=== PATIENT | female | born 1955 | race Caucasian/White ===

== ENCOUNTER 2017-03-27 13:54 | Inpatient (IN) | payer OTHER ==
[~2017-03-27] VITALS: Ht 165.1 cm; Wt 61.7 kg
[~2017-03-27 13:54] MED LIST: ALBUTEROL0.09 MG/A1 INH; MEDROL DOSEPAK1 PAC PO; NASONEX0.05 MG/Ac NAS; ROBITUSSIN W/CO10 ML PO; TESSALON PERLE100 MG PO; ZITHROMAX Z-PA250 M1 PO
--- NOTE | 2017-03-27 14:26 | ED DYSPNEA/ASTHMA COMPLAINT ---
History of Present Illness General Chief Complaint: Dyspnea (COPD, CHF, Other) Stated Complaint: PT IS SOB 94 Source: patient Exam Limitations: no limitations Vital Signs & Intake/Output Vital Signs & Intake/Output Vital Signs Date Time Temp Pulse Resp B/P B/P Pulse O2 O2 Flow FiO2 Mean Ox Delivery Rate 03/27 1929 Room Air 03/27 1929 97.9 113 23 170/105 95 Room Air 03/27 1723 122 190/102 03/27 1706 122 190/102 03/27 1652 96.4 122 18 190/102 97 Room Air 03/27 1420 97.4 119 16 155/96 95 Room Air Allergies Coded Allergies: NO KNOWN ALLERGIES (11/26/14) Reconcile Medications Aspirin (Aspirin*) 325 MG TABLET 1 TAB PO DAILY HEART Atorvastatin Calcium 40 MG TABLET 1 TAB PO DAILY CHOLESTEROL (Reported) Carvedilol 25 MG TABLET 1 TAB PO BID HYPERTENSION (Reported) Clopidogrel Bisulfate (Plavix) 75 MG TABLET 1 TAB PO DAILY HEART Diltiazem HCl (Diltiazem 24HR ER) 120 MG CAP.ER.24H 1 CAP PO DAILY HEART RATE (Reported) Fenofibrate Nanocrystallized (Fenofibrate) 145 MG TABLET 1 TAB PO DAILY CHOLESTEROL (Reported) Heparin Sod,Porcine/0.9 % NaCl (Heparin 2,500 Unit/250 Ml-Ns) 2,500 UNIT/250 ML (10 UNIT/ML) IV.SOLN 0 IV SEE ADMIN CRITERIA ACS PTT(sec) Repeat bolus STOP(min) Change Next PTT (Hr) <45 60units/kg 0 incre 4u/kg/h 6 45-60 30units/kg 0 incre 2u/kg/h 6 61-90 0 0 no change 12 91-100 0 0 decre 2u/kg/h 6 >100 0 60mins decre 4u/kg/h 6 Levothyroxine Sodium 25 MCG TABLET 1 TAB PO DAILY HYPOTHRYOIDISM (Reported) Lisinopril 20 MG TABLET 1 TAB PO DAILY hypertension (Reported) Metoprolol Tartrate 25 MG TABLET 25 MG PO BID HEART RATE Nitroglycerin (Nitro-Bid) 2 % OINT...G. 0.5 GM TOP Q6 CHEST PAIN Spironolactone 25 MG TABLET 1 TAB PO DAILY CARDIOMYOPATHY (Reported) Triage Note: PT TO ROOM FROM TRIAGE. STATES SHE AWOKE APPROX 0300 SWEATING, NAUSEATED, VOMITING x1. NO CP AT THAT TIME. SOB CONTINUED THROUGH THE REMAINDER OF NIGHT ALONG WITH SWEATS AND CHILLS. SX WORSEN WHILE LYING FLAT. UNKNOWN FEVERS POWDER HAND. PT ARRIVES IN ROOM AEBRILE, O2 SAT 96% ON RA, TACHYCARDIC. 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 yes Onset: Gradual Duration: hour(s): Timing: single episode today Severity: moderate Activities at Onset: rest HPI: 61-year-old female with history of CAD s/p CABG presents to ED complaining of dyspnea and diaphoresis beginning at 0300 this morning. Patient states that symptoms woke her up from rest. She states she has been feeling sick and nauseous all morning as well. Patient's symptoms gradually worsened and she reported here to the emergency department. Patient feels as though her shortness of breath has resolved. Patient states that these symptoms are similar to her previous CT, at that time she had diaphoresis without chest pain. Patient has had no chest pain today or recently. 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 The patient denies syncope, abdominal pain, leg swelling, hemopysis. Past History Travel History Traveled to [place] past 21 day No Medical History Any Pertinent Medical History? see below for history Neurological: NONE EENT: NONE Cardiovascular: hypertension, CARDIOMYOPATHY Respiratory: NONE Gastrointestinal: NONE Hepatic: NONE Renal: NONE Musculoskeletal: NONE Psychiatric: NONE Endocrine: NONE Surgical History Surgical History: CABG Psychosocial History What is your primary language [place] Tobacco Use: Quit >30 days ago ETOH Use: occasional use Family History Hx Contributory? No Review of Systems Review of Systems Constitutional: Reports: see HPI. EENTM: Reports: no symptoms. Respiratory: Reports: see HPI. Cardiovascular: Reports: see HPI. GI: Reports: see HPI. Genitourinary: Reports: no symptoms. Musculoskeletal: Reports: no symptoms. Skin: Reports: no symptoms. Neurological/Psychological: Reports: no symptoms. Hematologic/Endocrine: Reports: no symptoms. Immunologic/Allergic: Reports: no symptoms. All Other Systems: Reviewed and Negative Physical Exam Physical Exam General Appearance: well developed/nourished, no apparent distress, alert, awake Head: atraumatic, normal appearance Eyes: Bilateral: normal appearance. Ears, Nose, Throat: normal pharynx, hearing grossly normal Neck: normal inspection, supple, full range of motion Respiratory: normal breath sounds, no respiratory distress, lungs clear Cardiovascular: tachycardia Peripheral Pulses: 1+ radial (R), 2+ radial (L) Gastrointestinal: normal bowel sounds, soft, non-tender, no organomegaly Extremities: normal inspection, normal range of motion Neurologic/Psych: awake, alert, oriented x 3 Skin: intact, normal color, warm/dry Core Measures ACS in differential dx? Yes CVA/TIA Diagnosis No Sepsis Present: No Sepsis Focused Exam Completed? No Progress Differential Diagnosis: AMI, bronchitis, CHF, COPD, pulmonary embolism, pneumonia, pneumothorax, unstable angina Plan of Care: Orders Procedure Date/time Status Regular Diet 03/28 B Active PARTIAL THROMBOPLASTIN TIME 03/27 2320 Active VRE ACTIVE SURVIELLANCE 03/27 1999 Active ACTIVE SURVEILLANCE NARES 03/27 1999 Active TROPONIN LEVEL 03/27 194 Active EKG 03/27 194 Active Change service to 03/27 194 Active Patient Data 03/27 1921 Active CTA CHEST-PULMONARY EMBOLISM 03/27 1822 Active Misc Message 03/27 181 Active ED Holding Orders 03/27 1816 Active Admit to inpatient 03/27 1816 Active Vital Signs 03/27 1816 Active Code Status 03/27 1816 Active Add-on Test (ER Only) 03/27 1705 Active EKG 03/27 1636 Active PROTHROMBIN TIME 03/27 1540 Complete RAPID VIRAL INFLUENZA A 03/27 1446 Complete TROPONIN LEVEL 03/27 1421 Complete COMPREHENSIVE METABOLIC PANEL 03/27 1421 Complete CBC WITHOUT DIFFERENTIAL 03/27 1421 Complete EKG 03/27 1358 Active Current Medications Sig/Lupillo Start time Last Medication Dose Stop Time Status Admin Heparin Sodium 25,000 UNIT Q24H 03/27 1715 AC 03/27 (Porcine) 1723 (Heparin) Sodium Chloride 500 ML Laboratory Tests 03/27/17 1953: Troponin I Pending 03/27/17 1540: PT 10.5, INR 1.00 03/27/17 1539: Anion Gap 14, Estimated GFR > 60, BUN/Creatinine Ratio 41.7 H, Glucose 133 H, Calcium 10.5 H, Total Bilirubin 0.6, AST 40 H, ALT 33, Alkaline Phosphatase 116, Troponin I 0.30 *H, Total Protein 8.2, Albumin 4.5, Globulin 3.7, Albumin/ Globulin Ratio 1.2, CBC w Diff NO MAN DIFF REQ, RBC 4.57, MCV 93.6, MCH 31.3 H, MCHC 33.4, RDW 16.4 H, MPV 8.8, Gran % 81.1 H, Lymphocytes % 14.4 L, Monocytes % 4.2, Eosinophils % 0.1, Basophils % 0.2, Absolute Granulocytes 9.3 H, Absolute Lymphocytes 1.7, Absolute Monocytes 0.5, Absolute Eosinophils 0, Absolute Basophils 0 Microbiology 03/27 1999 UPPER RESP: Surveillance Culture - COLB 03/27 1999 GI: Surveillance Culture - COLB 03/27 1536 NASOPHARYN: Influenza Virus A & B Rapid Smear - COMP Patient's EKG is in sinus tachycardia, labs and chest x-ray ordered. Patient with hypertension and persistent tachycardia, will medicate with her home meds carvedilol and diltiazem. Repeat EKG shows ST depressions in lateral leads, change compared to prior EKG. Spoke with Dr. Fry regarding this patient and her EKGs and vital signs. He recommends 5 mg Lopressor, Nitropaste, Plavix, heparin, aspirin. He will consult patient in the ED. Dr. Fry present to see and evaluate patient. He recommends CTA given patient's persistent tachycardia. He also recommends ICU admission. Diagnostic Imaging: Viewed by Me: Radiology Read. Discussed w/RAD: Radiology Read. Radiology Impression: PATIENT: SUSIE WOLF PRESENT AGE: 61 PATIENT ACCOUNT NO: [id number] : 54 LOCATION: [facility] ORDERING PHYSICIAN: Sendy LOVELACE SERVICE DATE: 03/27/17 EXAM TYPE: RAD - XRY-CHEST XRAY, TWO VIEWS EXAMINATION: XR CHEST CLINICAL INFORMATION : Dyspnea. Hypoxia. COMPARISON: Chest x-ray 11/26/2014 TECHNIQUE: 2 views of the chest were obtained. FINDINGS: Status post median sternotomy. This is new since prior chest x-ray. The heart size is top normal. There is vascular wall calcifications of aorta. There is subtle increased interstitial lung markings at lung base, Pretty B line's with no significant central hilar pulmonary vascular congestion. No overt pulmonary edema. There is minimal blunting of the right lateral costophrenic angle consistent with a small right pleural effusion. There is hyperinflation of lungs. No focal consolidation. Degenerative spondylosis of dorsal spine with endplate spurring of the vertebrae. IMPRESSION: Subtle increased peripheral interstitial lung markings at lung bases consistent with interstitial edema. DICTATED BY: Weston Varela MD DATE/TIME DICTATED:03/27/171504 TILE HELPER:WINIFRED DATE/TIME TRANSCRIBED:03/27/171504 CONFIDENTIAL, DO NOT COPY WITHOUT APPROPRIATE AUTHORIZATION. <Electronically signed in Other Vendor System> SIGNED BY: Weston Varela MD 03/27/17 1512 Initial ED EKG: sinus tachycardia @122bpm, nonspecific ST changes Repeat EKG: changed (lateral ST depressions) Departure Departure Disposition: STILL A PATIENT Condition: Stable Clinical Impression Primary Impression: Hypertension Qualifiers: Hypertension type: unspecified Qualified Code: I10 - Essential ( primary) hypertension Secondary Impressions: Acute coronary syndrome, Acute electrocardiogram changes, NSTEMI (non-ST elevated myocardial infarction), Tachycardia Referrals: Mukesh Cleveland MD (PCP/Family) Departure Forms: Customer Survey General Discharge Information Prescriptions: Current Visit Scripts Nitroglycerin (Nitro-Bid) 0.5 GM TOP Q6 #30 PAS Metoprolol Tartrate 25 MG PO BID #30 TAB Clopidogrel Bisulfate (Plavix) 1 TAB PO DAILY #30 TAB Aspirin (Aspirin*) 1 TAB PO DAILY #30 TAB Heparin Sod,Porcine/0.9 % NaCl (Heparin 2,500 Unit/250 Ml-Ns) 0 IV SEE ADMIN CRITERIA #1 DRP PTT(sec) Repeat bolus STOP(min) Change Next PTT (Hr) <45 60units/kg 0 incre 4u/kg/h 6 45-60 30units/kg 0 incre 2u/kg/h 6 61-90 0 0 no change 12 91-100 0 0 decre 2u/kg/h 6 >100 0 60mins decre 4u/kg/h 6 Admission Note Spoke With: Lisandra YANG PHD,Semaj Rivas Documentation of Exam: Documentation of any treatments & extenuating circumstances including Concerns Regarding Discharge (functional status, medication knowledge or non-compliance, living conditions, etc.) that warrant an admission rather than observation: [ Acute coronary syndrome with elevated troponin and ischemic EKG changes, persistent tachycardia and hypertension despite IV medications, requiring IV antihypertensives, IV heparin, cardiology consults, intensive care unit] Critical Care Note Critical Care Note Critical Care Time: 30-74 min
--- NOTE | 2017-03-27 15:12 | RADIOLOGY REPORT ---
EXAMINATION: XR CHEST CLINICAL INFORMATION: Dyspnea. Hypoxia. COMPARISON: Chest x-ray 11/26/2014 TECHNIQUE: 2 views of the chest were obtained. FINDINGS: Status post median sternotomy. This is new since prior chest x-ray. The heart size is top normal. There is vascular wall calcifications of aorta. There is subtle increased interstitial lung markings at lung base, Pretty B line's with no significant central hilar pulmonary vascular congestion. No overt pulmonary edema. There is minimal blunting of the right lateral costophrenic angle consistent with a small right pleural effusion. There is hyperinflation of lungs. No focal consolidation. Degenerative spondylosis of dorsal spine with endplate spurring of the vertebrae. IMPRESSION: Subtle increased peripheral interstitial lung markings at lung bases consistent with interstitial edema.
[2017-03-27 15:48] LABS: ABSOLUTE BASOPHIL COUNT 0 /CUMM (0.0-0.2); ABSOLUTE EOSINOPHIL COUNT 0 /CUMM (0.0-0.7); ABSOLUTE GRANULOCYTE CT 9.3 /CUMM (1.4-6.5); ABSOLUTE LYMPH COUNT 1.7 /CUMM (1.2-3.4); ABSOLUTE MONOCYTE COUNT 0.5 /CUMM (0.10-0.60); BASOPHIL % 0.2 % (0.0-2.0); EOSINOPHIL % 0.1 % (0-5); GRANULOCYTE % 81.1 % (42.2-75.2); HEMATOCRIT 42.8 % (37-47); MEAN CORPUSCULAR HGB 31.3 PG (27.0-31.0); MEAN CORPUSCULAR HGB CONC 33.4 G/DL (33.0-37.0); MEAN CORPUSCULAR VOLUME 93.6 FL (81.0-99.0); MEAN PLATELET VOLUME 8.8 FL (7.4-10.4); PLATELET COUNT 266 /CUMM (130-400); RBC DISTRIBUTION WIDTH 16.4 % (11.5-14.5); RED BLOOD CELL CT 4.57 /CUMM (4.20-5.40); WHITE BLOOD CELL COUNT 11.5 /CUMM (4.8-10.8)
[2017-03-27 17:36] LABS: PT 10.5 SEC (9.4-12.5)
--- NOTE | 2017-03-27 20:45 | CT SCAN REPORT ---
EXAMINATION: CT ANGIOGRAM OF THE CHEST WITH AND WITHOUT CONTRAST (CT PULMONARY ANGIOGRAM FOR PE) CLINICAL INFORMATION: TACHYCARDIA, DYSPNEA COMPARISON: Chest x-ray 03/27/2017 TECHNIQUE: Prior to contrast administration, noncontrast localization images were obtained. Subsequently, multidetector volumetric imaging was performed from the thoracic inlet to below the diaphragms following the administration of 74 mL Optiray 320 intravenous contrast. No contrast reaction reported. Sagittal, coronal, and MIP oblique sagittal reformatted images were obtained on the CT workstation, uploaded to PACS, and reviewed. Total exam dose-length product 235.99 mGy-cm. FINDINGS: QUALITY OF STUDY/CONTRAST BOLUS: Satisfactory PULMONARY ARTERIES: No central or segmental pulmonary emboli. THORACIC AORTA: No aneurysm or dissection. Atherosclerotic vascular wall calcifications of aorta. LUNG: Diffuse emphysematous lucencies of lung. No consolidation. Central bronchial airways are open. PLEURA: No pleural effusion or pneumothorax. MEDIASTINUM: Normal heart top normal. No pericardial effusion. There is shotty lymph nodes in the pretracheal retrovascular space and AP window measuring less than 1 cm in diameter.. The dilatation of left ventricle with bowing of the septum toward the right. No evidence of right heart strain. There is calcification of the coronary arteries. CHEST WALL/AXILLA: No axillary or internal mammary lymphadenopathy. OSSEOUS STRUCTURES: Status post median sternotomy. Multilevel degenerative spondylosis of dorsal spine. UPPER ABDOMEN: Unremarkable. No reflux of contrast into the hepatic veins to suggest elevated right heart pressures. IMPRESSION: 1. No evidence of pulmonary embolism. 2. Emphysematous changes of lung. No infiltrate. VTE: negative
--- NOTE | 2017-03-27 20:46 | History & Physical ---
General Information and HPI MD Statement: I have seen and personally examined SUSIE WOLF and documented this H&P. The patient is a 61 year old F who presented with a patient stated chief complaint of nausea vomiting Source of Information: patient, family Exam Limitations: no limitations History of Present Illness: 61-year-old woman, former smoker past medical history significant for triple bypass surgery done in 2017 at [place], cardiomyopathy and hypertension, hypothyroidism brought in by for nausea vomiting. 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 Early this morning around 1 AM she woke up feeling short of breath associated nausea and bilious nonbloody vomiting and felt very diaphoretic. Denies fever, chest pain, palpitations, abdominal pain, diarrhea, constipation, recent travel, sick contacts, lower extremity swelling or orthopnea Allergies/Medications Allergies: Coded Allergies: NO KNOWN ALLERGIES (11/26/14) Home Med list Aspirin (Aspirin*) 325 MG TABLET 1 TAB PO DAILY HEART Atorvastatin Calcium 40 MG TABLET 1 TAB PO DAILY CHOLESTEROL (Reported) Carvedilol 25 MG TABLET 1 TAB PO BID HYPERTENSION (Reported) Clopidogrel Bisulfate (Plavix) 75 MG TABLET 1 TAB PO DAILY HEART Diltiazem HCl (Diltiazem 24HR ER) 120 MG CAP.ER.24H 1 CAP PO DAILY HEART RATE (Reported) Fenofibrate Nanocrystallized (Fenofibrate) 145 MG TABLET 1 TAB PO DAILY CHOLESTEROL (Reported) Heparin Sod,Porcine/0.9 % NaCl (Heparin 2,500 Unit/250 Ml-Ns) 2,500 UNIT/250 ML (10 UNIT/ML) IV.SOLN 0 IV SEE ADMIN CRITERIA ACS PTT(sec) Repeat bolus STOP(min) Change Next PTT (Hr) <45 60units/kg 0 incre 4u/kg/h 6 45-60 30units/kg 0 incre 2u/kg/h 6 61-90 0 0 no change 12 91-100 0 0 decre 2u/kg/h 6 >100 0 60mins decre 4u/kg/h 6 Levothyroxine Sodium 25 MCG TABLET 1 TAB PO DAILY HYPOTHRYOIDISM (Reported) Lisinopril 20 MG TABLET 1 TAB PO DAILY hypertension (Reported) Metoprolol Tartrate 25 MG TABLET 25 MG PO BID HEART RATE Nitroglycerin (Nitro-Bid) 2 % OINT...G. 0.5 GM TOP Q6 CHEST PAIN Spironolactone 25 MG TABLET 1 TAB PO DAILY CARDIOMYOPATHY (Reported) Compliance With Home Meds: UNKNOWN Past History Travel History Traveled to [place] past 21 day No Medical History Neurological: NONE EENT: NONE Cardiovascular: hypertension, CARDIOMYOPATHY Respiratory: NONE Gastrointestinal: NONE Hepatic: NONE Renal: NONE Musculoskeletal: NONE Psychiatric: NONE Endocrine: NONE Isolation History: Standard Surgical History Surgical History: CABG Past Family/Social History Psychosocial History Where do you live? Home ETOH Use: occasional use Review of Systems Review of Systems Constitutional: Denies: chills, diaphoresis, fever, malaise, weakness, unexplained weight loss. Cardiovascular: Denies: chest pain, edema, orthopena, palpitations, peripheral edema, syncope. Respiratory: Reports: short of breath. Denies: cough, hemoptysis, orthopnea, sputum production, stridor, wheezing. Exam & Diagnostic Data Last 24 Hrs of Vital Signs/I&O Vital Signs Date Time Temp Pulse Resp B/P B/P Pulse O2 O2 Flow FiO2 Mean Ox Delivery Rate 03/27 2339 112 162/100 03/273 Room Air Room Air 03/27 2133 112 180/111 03/27 2111 95 Room Air 03/27 2111 97.3 116 18 172/100 95 Room Air 03/27 1930 Room Air 03/27 193 97.9 113 23 170/105 95 Room Air 03/27 1723 122 190/102 03/27 1706 122 190/102 03/27 1652 96.4 122 18 190/102 97 Room Air 03/27 1420 97.4 119 16 155/96 95 Room Air Intake & Output 03/27 1600 03/27 0800 03/27 0000 Intake Total Output Total Balance Patient 135 lb Weight Weight Reported by Patient Measurement Method Physical Exam General Appearance Alert, Oriented X3, Mild Distress Skin diaphoretic HEENT Atraumatic, PERRLA, EOMI, Mucous Membr. moist/pink Neck +2 Carotid Pulse wo Bruit, JVD elevated Cardiovascular Normal S1, Normal S2, tachycardic Lungs scattered wheezes Extremities No Edema, Normal Pulses, No Tenderness/Swelling Diagnostic Data EKG Results Normal sinus rhythm tachycardia, QTC 486 ST depressions V4V6 CXR Results FINDINGS: Status post median sternotomy. This is new since prior chest x-ray. The heart size is top normal. There is vascular wall calcifications of aorta. There is subtle increased interstitial lung markings at lung base, Pretty B line's with no significant central hilar pulmonary vascular congestion. No overt pulmonary edema. There is minimal blunting of the right lateral costophrenic angle consistent with a small right pleural effusion. There is hyperinflation of lungs. No focal consolidation. Degenerative spondylosis of dorsal spine with endplate spurring of the vertebrae. IMPRESSION: Subtle increased peripheral interstitial lung markings at lung bases consistent with interstitial edema. Other Results SERVICE DATE: 03/27/17 EXAM TYPE: CAT - CTA CHEST-PULMONARY EMBOLISM FINDINGS: QUALITY OF STUDY/CONTRAST BOLUS: Satisfactory PULMONARY ARTERIES: No central or segmental pulmonary emboli. THORACIC AORTA: No aneurysm or dissection. Atherosclerotic vascular wall calcifications of aorta. LUNG: Diffuse emphysematous lucencies of lung. No consolidation. Central bronchial airways are open. PLEURA: No pleural effusion or pneumothorax. MEDIASTINUM: Normal heart top normal. No pericardial effusion. There is shotty lymph nodes in the pretracheal retrovascular space and AP window measuring less than 1 cm in diameter.. The dilatation of left ventricle with bowing of the septum toward the right. No evidence of right heart strain. There is calcification of the coronary arteries. CHEST WALL/AXILLA: No axillary or internal mammary lymphadenopathy. OSSEOUS STRUCTURES: Status post median sternotomy. Multilevel degenerative spondylosis of dorsal spine. UPPER ABDOMEN: Unremarkable. No reflux of contrast into the hepatic veins to suggest elevated right heart pressures. IMPRESSION: 1. No evidence of pulmonary embolism. 2. Emphysematous changes of lung. No infiltrate. VTE: negative Assessment/Plan Assessment: 61-year-old woman, former smoker past medical history significant for triple bypass surgery done in 2017 at [place], cardiomyopathy and hypertension, hypothyroidism brought in by for nausea vomiting. Vitals on admission temperature 97.9, heart rate [id number], blood pressure 170s 105 95% on room air Labs significant for WBC 11.5 hematocrit, hemoglobin 14.3, sodium 141 potassium 4.8, BUN 25, creatinine 0.6, PT 10.5, glucose 133, normal LFTs, troponin 0.30 EKG significant for sinus tachycardia with ST depressions in V4 to V6 X-ray shows Subtle increased peripheral interstitial lung markings at lung bases consistent with interstitial edema. CTA ruled out PE Problem list NSTEMI hypothyroidism Hyperlipidemia hypertension Plan Admit to ICU, vitals per protocol Trend troponin/ EKG ED was started on IV heparin with bolus and given 75 mg of Plavix and 325 mg of aspirin Will give a total of 225 of Plavix for loading dose of 300 mg and continue 75 mg of Plavix continue aspirin. Follow-up echocardiogram Continue her lisinopril, Coreg Cardizem, levothyroid, spironolactone, statin and fenofibrate follow up TSH /T4 and proBNP Heart healthy diet DVT prophylaxis IV heparin Full code As Ranked By This Provider Problem List: 1. Tachycardia 2. Acute electrocardiogram changes 3. Acute coronary syndrome Core Measures/Misc (10/22) Acute Coronary Syndrome ACS Diagnosis: Yes Congestive Heart Failure Congestive Heart Failure Diagnosis No Cerebrovascular Accident CVA/TIA Diagnosis: No VTE (View Protocol) VTE Risk Factors Age>40 No Mechanical VTE Prophylaxis d/t N/A MechProphylax Ordered No VTE Pharm Prophylaxis d/t NA PharmProphylax ordered Sepsis (View protocol) Sepsis Present: No
[2017-03-27] MEDS ORDERED: LISINOPRIL20 M1 PO (20:47)
[2017-03-27] MEDS ORDERED: ATORVASTATIN CA20 M1 PO (20:48)
--- NOTE | 2017-03-27 20:55 | Cons- Cardiology ---
General Information and HPI Consulting Request Date of Consult: 03/27/17 Requested By: Lisandra YANG PHD,Semaj Rivas History of Present Illness: Josi is a 61 year old female with history of coronary artery disease s/p CABG a year ago. She presented to the ER for symptoms similar to those she had in the setting of her prior ACS. At about 3AM this patient awakened with nausea, vomiting and profuse diaphoresis. She had a severe feeling of ill being and possilbe epigastric/heartburn sensation. Shortness of breath was also noted. In the ER the patient was noted to be tachycardic with positive cardiac enzymes. Her ECG shows ischemic ST segment depressions in the anterolateral leads. Her chest CT is negative for a pulmonary embolism but does show emphysematous changes. Allergies/Medications Allergies: Coded Allergies: NO KNOWN ALLERGIES (11/26/14) Home Med List: Albuterol Sulfate (Albuterol Sulfate Hfa) 0.09 MG/Actuation CHANG 2 PUFF INH Q4- 6 PRN PRN SHORTNESS OF BREATH 90 MCG PER PUFF Atorvastatin Calcium 20 MG TABLET 1 TAB PO DAILY cholesterol (Reported) Azithromycin (Zithromax Z-Curtis) 250 MG CAP 1 DP PO AD PNA 2 the first day followed by 1 for days 2-5 Benzonatate (Tessalon Perle) 100 MG SGL 1 TAB PO TID COUGH Lisinopril 20 MG TABLET 1 TAB PO DAILY hypertension (Reported) Methylprednisolone. (Medrol) 1 PAC PAC 1 PAC PO AD INFLAMMATION Mometasone Furoate (Nasonex) 0.05 MG/Actuation SPR 2 SPRAY ARIE DAILY CONGESTION Robitussin AC (Guaifenesin-Codeine Syrup) 10 ML UDC 5 ML PO Q6 COUGH Review of Systems Review of Systems: A reiew of systems is unremarkable. Past History Travel History Traveled to [place] past 21 day No Medical History Neurological: NONE EENT: NONE Cardiovascular: hypertension, CARDIOMYOPATHY Respiratory: NONE Gastrointestinal: NONE Hepatic: NONE Renal: NONE Musculoskeletal: NONE Psychiatric: NONE Endocrine: NONE Surgical History Surgical History: CABG Psychosocial History ETOH Use: occasional use Exam & Diagnostic Data Vital Signs and I&O Vital Signs Date Time Temp Pulse Resp B/P B/P Pulse O2 O2 Flow FiO2 Mean Ox Delivery Rate 03/27 1929 Room Air 03/27 1929 97.9 113 23 170/105 95 Room Air 03/27 1723 122 190/102 03/27 1706 122 190/102 03/27 1652 96.4 122 18 190/102 97 Room Air 03/27 1420 97.4 119 16 155/96 95 Room Air Intake & Output 03/27 1600 03/27 0800 03/27 0000 03/26 1600 03/26 0800 03/26 0000 Intake Total Output Total Balance Patient 135 lb Weight Weight Reported by Patient Measurement Method Physical Exam: General: WD/WN female in NAD; alert and oriented x 3 HEENT: NC/AT, PERRL, EOMI Neck: no JVD, no carotid bruit Heart: RRR w/o murmur Lungs: clear bilaterally Abdomen: soft, NT, +ve bowel sounds Extremities: no edema Assessment/Plan Assessment/Plan * This patient has symptoms consistent with a NSTEMI. She is tachycardic which is exacerbating her ischemia. We will begin Lopressor 25mg BID after giving 5mg IV push. Begin NTG paste 1/2 inch Q 6 hours. Also begin an ACEI and statin. This patient will need full anticoagulation with aspirin 325mg daily, Plavix 75mg daily after a 300mg loading dose and IV heparin. O2 2L by NC. * Follow cardiac enzymes until they peak. * Obtain an echocardiogram. Patient has a history of cardiomyopathy. Consult Acknowledgment - Thank you for your consult request.
[2017-03-27] MEDS ORDERED: DILTIAZEM 24HR120 MG PO (21:07)
[2017-03-27] MEDS ORDERED: ATORVASTATIN CA40 M1 PO (21:07)
[2017-03-27] MEDS ORDERED: LEVOTHYROXINE25 MCG PO (21:08)
[2017-03-27] MEDS ORDERED: SPIRONOLACTONE25 M1 PO (21:08)
[2017-03-27] MEDS ORDERED: FENOFIBRATE145 M1 PO (21:08)
[2017-03-27] MEDS ORDERED: CARVEDILOL25 M1 PO (21:09)
[2017-03-27 21:12] VITALS: BP 172/100
[2017-03-28] VITALS: BP 160/100
[2017-03-28 00:54] LABS: PTT 91 SEC (25-37)
[2017-03-28 05:08] LABS: ABSOLUTE BASOPHIL COUNT 0 /CUMM (0.0-0.2); ABSOLUTE EOSINOPHIL COUNT 0 /CUMM (0.0-0.7); ABSOLUTE GRANULOCYTE CT 13.1 /CUMM (1.4-6.5); ABSOLUTE LYMPH COUNT 2.3 /CUMM (1.2-3.4); ABSOLUTE MONOCYTE COUNT 0.6 /CUMM (0.10-0.60); BASOPHIL % 0.3 % (0.0-2.0); EOSINOPHIL % 0 % (0-5); GRANULOCYTE % 81.8 % (42.2-75.2); HEMATOCRIT 44.5 % (37-47); MEAN CORPUSCULAR HGB 31.2 PG (27.0-31.0); MEAN CORPUSCULAR HGB CONC 33.4 G/DL (33.0-37.0); MEAN CORPUSCULAR VOLUME 93.4 FL (81.0-99.0); MEAN PLATELET VOLUME 9.1 FL (7.4-10.4); PLATELET COUNT 259 /CUMM (130-400); RBC DISTRIBUTION WIDTH 16.2 % (11.5-14.5); RED BLOOD CELL CT 4.76 /CUMM (4.20-5.40); WHITE BLOOD CELL COUNT 16.1 /CUMM (4.8-10.8)
--- NOTE | 2017-03-28 07:24 | PN- Housestaff ---
Subjective Follow-up For: Uptrending troponins Hypertensive urgency Subjective: Patient seen and examined. Resting comfortably in the bed. Denies any chest pain, shortness of breath, headache or palpitations. Reports improvement in symptoms. Her blood pressure consistently remains elevated at 170-180/100s, HR is 90s to 100s She has received 25 mg IV Lopressor or the course of time in 5 mg, 10 mg pushes Review of Systems Constitutional: Reports: see HPI. Objective Last 24 Hrs of Vital Signs/I&O Vital Signs Date Time Temp Pulse Resp B/P B/P Pulse O2 O2 Flow FiO2 Mean Ox Delivery Rate 03/28 0816 108 14 179/112 03/28 0800 97 Room Air 03/28 0400 95 Room Air 03/28 0304 107 167/100 03/28 0125 113 173/109 03/28 0000 94 Room Air 03/28 0000 98.2 103 20 160/100 95 Room Air 03/27 2339 112 162/100 03/27 2143 Room Air Room Air 03/27 2134 112 180/111 03/27 2112 95 Room Air 03/27 2112 97.3 116 18 172/100 95 Room Air 03/27 1930 Room Air 03/27 1930 97.9 113 23 170/105 95 Room Air 03/27 1723 122 190/102 03/27 1706 122 190/102 03/27 1652 96.4 122 18 190/102 97 Room Air 03/27 1420 97.4 119 16 155/96 95 Room Air Intake & Output 03/28 1600 03/28 0800 03/28 0000 Intake Total 343.3 270.4 Output Total 0 200 Balance 343.3 70.4 Intake, IV 103.3 30.4 Intake, Oral 240 240 Number 0 Bowel Movements Output, Urine 0 200 Patient 136 lb Weight Weight Bed scale Measurement Method Physical Exam General Appearance: Alert, Oriented X3, Cooperative, No Acute Distress Skin: No Rashes Cardiovascular: Normal S1, Normal S2, No Murmurs Lungs: Clear to Auscultation, Normal Air Movement Abdomen: Normal Bowel Sounds, Soft, No Tenderness Neurological: Normal Speech Extremities: No Edema Assessment/Plan Assessment: 61-year-old woman, former smoker past medical history significant for triple bypass surgery done in 2017 at [place], cardiomyopathy and hypertension, hypothyroidism brought in by for nausea vomiting. EKG significant for sinus tachycardia with ST depressions in V4 to V6 X-ray shows Subtle increased peripheral interstitial lung markings at lung bases consistent with interstitial edema. She is currently being treated and evaluated for following conditions #NSTEMI Patient symptoms were consistent with an NSTEMI with tachycardia exacerbating her ischemia. -Continue IV heparin -Continue aspirin and Plavix -Continue NTG paste -Uptrending troponins 0.30, 0.34, 0.43 -Echocardiogram pending -Cardiology Dr. Fry on board #Hypertensive urgency with tachycardia Presented with elevated blood pressure her blood pressure has been running in 170s/100s. She has been tachycardic in 120's -Patient has been started on Lopressor 25 mg twice a day -HR 100s, blood pressure 150/90 after 1 dose of Lopressor -Patient is going to receive diltiazem now at 11;00am -Will recheck blood pressure in 1 h and administer spironolactone, lisinopril, and along accordingly #Leukocytosis Likely Reactive patient remains afebrile. No obvious sources of infection. Chest x-ray show any consolidation -Blood cultures 2 drawn -Follow-up urin analysis and urine culture #History of hypothyroidism -TSH free T4 wnl -Continue Synthyroid #History of hyperlipidemia -Continue Statin and fenofibrate #Heart healthy diet/DVT prophylaxis IV heparin/Full code Problem List: 1. Tachycardia 2. Hypertension Pain Ratin Pain Location: prn Pain Goal: Pain 4 or less Pain Plan: prn Tomorrow's Labs & Rationales: cbc bep
[2017-03-28 08:00] VITALS: BP 172/102
[2017-03-28 08:16] LABS: PTT 60 SEC (25-37)
[2017-03-28 12:00] VITALS: BP 138/80
[2017-03-28] MEDS ORDERED: NITRO-BID1 GM TOP (12:54)
[2017-03-28] MEDS ORDERED: PLAVIX75 M1 PO (12:54)
[2017-03-28] MEDS ORDERED: METOPROLOL TART25 M1 PO (12:54)
[2017-03-28] MEDS ORDERED: ASPIRIN325 M2 PO (12:54)
--- NOTE | 2017-03-28 13:08 | Discharge Summary ---
Visit Information Visit Dates Admission Date: 03/27/17 Discharge Date: 03/27/17 Hospital Course Course Attending Physician: Lisandra YANG PHD,Semaj Rivas Primary Care Physician: Megha YANG,[facility] Course: This is a 61-year-old lady with past medical history significant for cardiomyopathy, CAD status post CABG 1 year prior to presentation, hypertension, hypothyroidism, who presented to the emergency room with symptoms including nausea, vomiting, profuse diaphoresis, epigastric/heartburn sensation, shortness of breath started early in the morning of her hospital presentation. Her symptoms were similar to her prior and ACS. Vital signs on admission: Afebrile, Hypertensive to 190s systolic over 100s diastolic, tachycardic with maximum pulse rate 122, oxygen saturation 95% on room air. Physical exam on admission:General: WD/WN female in NAD; alert and oriented x 3 HEENT: NC/AT, PERRL, EOMI Neck: no JVD, no carotid bruit Heart: RRR w/o murmur Lungs: clear bilaterally Abdomen: soft, NT, +ve bowel sounds Extremities: no edema Pertinent lab data on admission: WBC 11.5, hemoglobin 14.3, hematocrit 42.8, platelet 266. Sodium 137, potassium 4.1, chloride 102, creatinine 0.6, glucose 147, total bilirubin 0.8, AST 38, ALT 29, troponin 0.38, proBNP 79381, albumin 4.1, TSH 2.9, free T4 0.99, Pertinent imaging on admission: Chest x-ray:Subtle increased peripheral interstitial lung markings at lung bases consistent with interstitial edema. Chest CT: 1. No evidence of pulmonary embolism. 2. Emphysematous changes of lung. No infiltrate. VTE: negative Admission EKG revealed ischemic ST segment depressions in the anterolateral leads. The following problems were addressed during the course of her hospital stay: #NSTEMI: The patient's symptoms were consistent with a NSTEMI. She received NC oxygen supplementation. She was started on IV heparin, Lopressor 25 mg twice a day,NTG paste 1/2 inch Q 6 hours and was maintained on JONNY inhibitor and statin. She also received full dose aspirin 325 mg daily and Plavix 75mg daily after a 300mg loading dose. Patient's troponin level peaked at 0.43 and then trended down. She remained hypertensive overnight despite receiving doses of IV Lopressor. Her blood pressure improved in the morning after receiving by mouth antihypertensives. The decision was made for the patient to be transferred to another facility for cardiac catheterization. Per Dr. Fry's instructions, IV heparin to be continued while patient being transferred. #Hypertensive urgency: The patient presented with elevated blood pressure 190s systolic over 100s diastolic. Received doses of IV Lopressor overnight. She was maintained on her home medications of lisinopril, diltiazem, spironolactone and carvedilol. She was also started on metoprolol tartrate 25 mg twice a day. Patient was still hypertensive to 160s-170s systolic and 100s diastolic, blood pressure improved to 130s systolic/80s diastolic after receiving oral antihypertensives. #Leukocytosis: The patient had WBC 11.5 on admission, this morning WBC 16.1. The patient did not have any urinary or respiratory complaints or clear clinical sign of an infection. Leukocytosis could be likely reactive. Blood cultures and urine culture and urine analysis ordered. #Hypothyroidism: Thyroid function test done on admission which were within normal limits. The patient is on levothyroxine 25 MCG daily #DVT prophylaxis: Being addressed by IV heparin #The patient is full code. Allergies: Coded Allergies: NO KNOWN ALLERGIES (11/26/14) Pertinent Lab Results: Laboratory Tests 03/28/17 1315: Urine Color Pending, Urine Clarity Pending, Urine pH Pending, Ur Specific Jackson Pending, Urine Protein Pending, Urine Ketones Pending, Urine Nitrite Pending, Urine Bilirubin Pending, Urine Urobilinogen Pending, Ur Leukocyte Esterase Pending, Ur Microscopic SEDIMENT EXAMINED, Urine RBC Pending, Urine Hemoglobin Pending, Urine Glucose Pending 03/28/17 1300: Troponin I Pending, APTT 59 H 03/28/17 0704: Troponin I 0.43 *H, Free T4 0.99, APTT 60 H 03/28/17 0453: Anion Gap 13, Estimated GFR > 60, Glucose 147 H, Calcium 9.6, Phosphorus 3.1, Magnesium 1.7, Total Bilirubin 0.8, AST 38 H, ALT 29, Albumin 4.1, CBC w Diff NO MAN DIFF REQ, RBC 4.76, MCV 93.4, MCH 31.2 H, MCHC 33.4, RDW 16.2 H, MPV 9.1, Gran % 81.8 H, Lymphocytes % 14.2 L, Monocytes % 3.7, Eosinophils % 0, Basophils % 0.3, Absolute Granulocytes 13.1 H, Absolute Lymphocytes 2.3, Absolute Monocytes 0.6, Absolute Eosinophils 0, Absolute Basophils 0 03/28/17 0140: Troponin I 0.38 *H, Fyo-R-Msebllfflof Pept 57674 H, TSH 2.900, Thyroxine (T4) 8.1 03/27/17 2328: APTT 91 H 03/27/17 1953: Troponin I 0.34 *H 03/27/17 1540: PT 10.5, INR 1.00 03/27/17 1539: Anion Gap 14, Estimated GFR > 60, BUN/Creatinine Ratio 41.7 H, Glucose 133 H, Calcium 10.5 H, Total Bilirubin 0.6, AST 40 H, ALT 33, Alkaline Phosphatase 116, Troponin I 0.30 *H, Total Protein 8.2, Albumin 4.5, Globulin 3.7, Albumin/ Globulin Ratio 1.2, CBC w Diff NO MAN DIFF REQ, RBC 4.57, MCV 93.6, MCH 31.3 H, MCHC 33.4, RDW 16.4 H, MPV 8.8, Gran % 81.1 H, Lymphocytes % 14.4 L, Monocytes % 4.2, Eosinophils % 0.1, Basophils % 0.2, Absolute Granulocytes 9.3 H, Absolute Lymphocytes 1.7, Absolute Monocytes 0.5, Absolute Eosinophils 0, Absolute Basophils 0 Microbiology 03/28 1315 URINE ROUT: Urine Culture - RECD 03/28 1310 BLOOD: Blood Culture - RECD 03/28 1300 BLOOD: Blood Culture - RECD 03/27 2100 UPPER RESP: Surveillance Culture - RECD 03/27 2100 GI: Surveillance Culture - RECD 03/27 1536 NASOPHARYN: Influenza Virus A & B Rapid Smear - COMP Disposition Summary Disposition Principal Diagnosis: NSTEMI Additional Diagnosis: Hypertensive urgency Leukocytosis Discharge Disposition: other general hospital Discharge Instructions General Discharge Information Code Status: Full Code Patient's Diet: NPO for cardiac cath Patient's Activity: As tolerated Follow-Up Instructions/Appts: Please follow-up with PCP within a week of discharge. Please follow up with dump worker, Dr. Fry within a week of discharge. Follow-up blood culture and urine culture results. Medications at Discharge Discharge Medications: Stop taking the following medications: Atorvastatin Calcium (Atorvastatin Calcium) 20 MG TABLET ORAL DAILY Qty = 30 Continue taking these medications: Lisinopril (Lisinopril) 20 MG TABLET 1 Tablet ORAL DAILY Qty = 90 Atorvastatin Calcium (Atorvastatin Calcium) 40 MG TABLET 1 Tablet ORAL DAILY Qty = 90 Comments: NOT GIVEN IN HOSPITAL Diltiazem HCl (Diltiazem 24HR ER) 120 MG CAP.ER.24H 1 Capsule ORAL DAILY Qty = 90 Comments: Last Taken: 03/28/17 Time: 1045 Fenofibrate Nanocrystallized (Fenofibrate) 145 MG TABLET 1 Tablet ORAL DAILY Qty = 30 Comments: Last Taken: 03/28/17 Time: 1030 Spironolactone (Spironolactone) 25 MG TABLET 1 Tablet ORAL DAILY Qty = 90 Levothyroxine Sodium (Levothyroxine Sodium) 25 MCG TABLET 1 Tablet ORAL DAILY Qty = 90 Comments: Last Taken: 03/28/17 Time: 0515 Carvedilol (Carvedilol) 25 MG TABLET 1 Tablet ORAL TWICE DAILY Qty = 180 Comments: Last Taken: 03/27/17 Time: 1700 Start taking the following new medications: Nitroglycerin (Nitro-Bid) 2 % OINT...G. 0.5 Gram On the skin EVERY SIX HOURS Qty = 30 No Refills Metoprolol Tartrate (Metoprolol Tartrate) 25 MG TABLET 25 Milligram ORAL TWICE DAILY Qty = 30 No Refills Clopidogrel Bisulfate (Plavix) 75 MG TABLET 1 Tablet ORAL DAILY Qty = 30 No Refills Aspirin (Aspirin*) 325 MG TABLET 1 Tablet ORAL DAILY Qty = 30 No Refills Heparin Sod,Porcine/0.9 % NaCl (Heparin 2,500 Unit/250 Ml-Ns) 2,500 UNIT/250 ML (10 UNIT/ML) IV.SOLN 0 INTRAVEN SEE INSTRUCTIONS Qty = 1 No Refills Instructions: PTT(sec) Repeat bolus STOP(min) Change Next PTT (Hr) <45 60units/kg 0 incre 4u/kg/h 6 45-60 30units/kg 0 incre 2u/kg/h 6 61-90 0 0 no change 12 91-100 0 0 decre 2u/kg/h 6 >100 0 60mins decre 4u/kg/h 6 Copies To: Megha YANG,Mukesh; Lisandra YANG PHD,Semaj Rivas
[2017-03-28 13:46] LABS: PTT 59 SEC (25-37)
[2017-03-28] MEDS ORDERED: HEPARIN IV (14:15)
--- NOTE | 2017-03-28 14:29 | Event Note ---
Event Note Event Note: Patient is being transferred for cardiac catheterization in light of upcoming troponins and persistent tachycardia on instructions of Dr. Fry.
--- NOTE | 2017-03-29 14:34 | ECHOCARDIOGRAM REPORT ---
SUSIE WOLF Age: 61 : 1955 Gender: F Exam Date: 03/28/2017 09:29 Exam Location: [facility] Ht (in): 65 Wt (lb): 136 BSA: 1.69 BP: 177 / 105 Ordering Physician: Maureen Lawrence MD Referring Physician: Maureen Lawrence MD Technologist: Ernie Salomon [facility] Room Number: 106-1 Indications: Chest Pain Rhythm: Sinus Technical Quality: Poor FINDINGS Left Ventricle Mild left ventricular dilatation. Mildly to moderately reduced global left ventricular systolic function. Mildly to moderately abnormal left ventricular ejection fraction estimated at 35%. Abnormal relaxation filling pattern of the left ventricle for age (stage 1 diastolic dysfunction). Right Ventricle Normal right ventricular size and function. Right Atrium Normal right atrial size. Left Atrium Normal left atrial size. Mitral Valve Mild mitral annular calcification. Mild subvalvular mitral calcification. Mitral valve mildly thickened. Trace mitral regurgitation. Aortic Valve Aortic valve not well visualized. Mild aortic sclerosis. No aortic valve stenosis or regurgitation. Tricuspid Valve Tricuspid valve not well visualized. Trace tricuspid regurgitation. Unable to estimate the right ventricular systolic pressure. Pulmonic Valve Pulmonic valve not well visualized. No pulmonic regurgitation. Pericardium No pericardial effusion. Great Vessels Normal size aortic root. CONCLUSIONS Mild left ventricular dilatation. Mildly to moderately reduced global left ventricular systolic function. Mildly to moderately abnormal left ventricular ejection fraction estimated at 35%. Abnormal relaxation filling pattern of the left ventricle for age (stage 1 diastolic dysfunction). Normal right ventricular size and function. Normal atrial size. Trace mitral regurgitation. Trace mitral regurgitation. Trace tricuspid regurgitation. Unable to estimate the right ventricular systolic pressure. Jamie Heredia M.D. (Electronically Signed) Final Date: 29 March 2017 14:33 MEASUREMENTS (Male / Female) Normal Values 2D ECHO LV Diastolic Diameter PLAX 5.9 cm 4.2 - 5.9 / 3.9 - 5.3 cm LV Systolic Diameter PLAX 5.7 cm 2.1 - 4.0 cm IVS Diastolic Thickness 1.0 cm LVPW Diastolic Thickness 0.9 cm LV Relative Wall Thickness 0.3 RV Internal Dim ED PLAX 3.0 cm 1.9 - 3.8 cm LVOT Diameter 1.9 cm Aortic Root Diameter 2.7 cm LA Systolic Diameter LX 4.5 cm 3.0 - 4.0 / 2.7 - 3.8 cm LV Ejection Fraction MOD BP 25.0 % >= 55 % LV Diastolic Length 4C 6.9 cm 6.9 - 10.3 cm LV Diastolic Area 4C 29.0 cm LV Diastolic Volume MOD 4C 101.0 cm LV Ejection Fraction MOD 4C 19.8 % LV Stroke Volume MOD 4C 20.0 cm LV Systolic Length 4C 6.9 cm LV Systolic Area 4C 25.6 cm LV Systolic Volume MOD 4C 81.0 cm LV Ejection Fraction MOD 2C 25.7 % LV Diastolic Volume 4C AL 104.2 cm 85 - 139 / 69 - 109 cm LV Systolic Volume 4C AL 80.5 cm LV Ejection Fraction 4C AL 22.7 % LV Stroke Volume 4C AL 23.7 cm LV Ejection Fraction 2C AL 28.0 % LA Volume 42.0 cm 18 - 58 / 22 - 52 cm Ascending Aorta Diameter 3.0 cm DOPPLER AV Peak Velocity 103.0 cm/s AV Peak Gradient 4.2 mmHg AV Mean Velocity 67.6 cm/s AV Mean Gradient 2.0 mmHg AV Velocity Time Integral 15.7 cm LVOT Peak Velocity 45.9 cm/s LVOT Peak Gradient 0.8 mmHg LVOT Mean Velocity 24.7 cm/s LVOT Mean Gradient 0.0 mmHg LVOT Velocity Time Integral 6.9 cm LVOT Stroke Volume 19.4 cm AV Area Cont Eq vti 1.2 cm AV Area Cont Eq pk 1.3 cm MV Peak Velocity 81.6 cm/s MV Peak Gradient 2.7 mmHg MV Mean Velocity 50.7 cm/s MV Mean Gradient 1.0 mmHg Mitral E Point Velocity 61.7 cm/s Mitral A Point Velocity 70.1 cm/s Mitral E to A Ratio 0.9 MV Deceleration Time 134.0 ms MR Peak Velocity 581.0 cm/s MR Peak Gradient 135.0 mmHg PV Peak Velocity 67.6 cm/s PV Peak Gradient 1.8 mmHg PV Mean Velocity 42.0 cm/s PV Mean Gradient 1.0 mmHg PV Velocity Time Integral 10.7 cm LV E' Lateral Velocity 8.9 cm/s Mitral E to LV E' Lateral Ratio 7.0
== END 2017-03-28 14:20 | disposition short-term general hospital (02) | DRG 190 ==
LOC: ERH 13:54 → ERHI 18:16 → CRI 18:16 → ENRESERV 19:15 → 1NO 19:20 → ERHI 19:28 → ENRESERV 19:37 → ERHI 19:56 → ENTRNSPT 20:31 → EDTRNSPTSTS 20:42 → EDTRNSPT 20:42 → CRI 20:58 → CMPTRNSPT 21:02 → CRI 03-28 14:20
PROVIDERS: Internal Medicine; Physician Assistant; Student in an Organized Health Care Education/Training Program
DX: I21.4 Non-ST elevation (NSTEMI) myocardial infarction (principal); I42.9 Cardiomyopathy, unspecified; I10 Essential (primary) hypertension; I25.810 Atherosclerosis of coronary artery bypass graft(s) without angina pectoris; Z87.891 Personal history of nicotine dependence; E03.9 Hypothyroidism, unspecified; Z79.82 Long term (current) use of aspirin; Z79.51 Long term (current) use of inhaled steroids; R00.0 Tachycardia, unspecified; I16.0 Hypertensive urgency; D72.829 Elevated white blood cell count, unspecified
CPT/HCPCS: CCU; 36415; 71046; 81001; 82436; 87040; 87086; 87804; 87804-59; 93005; 93010; 93306; J1644; J2405